=== PATIENT | female | born 2000 | race African-American/Black ===

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

== ENCOUNTER 2021-01-13 19:51 | Emergency (ER) | payer SELFPAY ==
[~2021-01-13] VITALS: Ht 175.3 cm; Wt 92.0 kg
[~2021-01-13 19:51] MED LIST: ONDA4TAB7 PO; POTA20TA4 PO
[2021-01-13 20:30] VITALS: BP 159/95
== END 2021-01-13 22:12 | disposition left against medical advice (07) ==
LOC: ER 19:57
DX: R68.84 Jaw pain (principal); Z53.21 Procedure and treatment not carried out due to patient leaving prior to being seen by health care provider
CPT/HCPCS: 81025

== ENCOUNTER 2021-01-21 15:37 | Emergency (ER) | payer SELFPAY | END 2021-01-21 18:10 | disposition left against medical advice (07) | LOC: ER 15:37 | DX: K08.89 Other specified disorders of teeth and supporting structures (principal); Z53.21 Procedure and treatment not carried out due to patient leaving prior to being seen by health care provider ==